=== PATIENT | female | born 1975 | race Caucasian/White ===

== ENCOUNTER 2022-12-21 09:59 | Emergency (ER) | payer OTHER ==
[~2022-12-21] VITALS: Ht 157.5 cm; Wt 58.4 kg
[2022-12-21 10:25] LABS: BASOPHILS % (AUTO) 0.6 % (0-1); EOSINOPHILS % (AUTO) 0.5 % (0-6); HEMATOCRIT 39.2 % (35.0-45.0); HEMOGLOBIN 13.2 g/dl (12.0-16.0); LYMPHOCYTES # (AUTO) 2.1 X10'3 (1.1-4.8); LYMPHOCYTES % (AUTO) 29.4 % (21-51); MEAN CORPUSCULAR HEMOGLOBIN 32.4 PG (27.0-31.0); MEAN CORPUSCULAR HGB CONC 33.6 g/dL (33.0-36.5); MEAN CORPUSCULAR VOLUME 96.4 FL (78-98); MEAN PLATELET VOLUME 7.2 FL (7.4-10.4); MONOCYTES # (AUTO) 0.5 X10'3 (0-0.9); MONOCYTES % (AUTO) 7.4 % (2-12); NEUTROPHILS # (AUTO) 4.4 X10'3 (1.8-7.7); NEUTROPHILS % (AUTO) 62.1 % (42-75); PLATELET COUNT 255 X10'3 (140-440); RED BLOOD COUNT 4.07 X10'6 (4.20-5.60); RED CELL DISTRIBUTION WIDTH 12.8 % (11.5-14.5); WHITE BLOOD COUNT 7.1 X10'3 (4.5-11.0)
[2022-12-21 10:58] LABS: ALANINE AMINOTRANSFERASE 19 U/L (12-78); ALBUMIN 3.9 G/DL (3.4-5.0); ALBUMIN/GLOBULIN RATIO 1.3 (1.1-1.5); ALKALINE PHOSPHATASE 39 IU/L (46-116); ANION GAP 9 (8-16); ASPARTATE AMINO TRANSFERASE 12 U/L (10-37); BILIRUBIN,TOTAL 0.3 MG/DL (0.1-1.0); BLOOD UREA NITROGEN 10 MG/DL (7-18); BUN/CREATININE RATIO 17.9 (10.0-20.0); CALCIUM 9.1 MG/DL (8.5-10.1); CHLORIDE 105 MMOL/L (99-107); CREATININE 0.56 MG/DL (0.40-0.90); GLUCOSE 112 MG/DL (70-104); LIPASE 135 U/L (73-393); POTASSIUM 3.9 MMOL/L (3.5-5.1); SODIUM 141 MMOL/L (135-145); TOTAL CARBON DIOXIDE 27.4 MMOL/L (24-32); TOTAL PROTEIN 6.9 G/DL (6.4-8.2); eCRCL 98 ML/MIN; eGFR > 90 ML/MIN
[2022-12-21] MEDS ORDERED: atropine 1 MG/1 ML vial IV STA (13:41)
[2022-12-21 13:54] VITALS: BP 127/75; PULSE 73; RESP 18; TEMP 98.7; O2SAT 100
[2022-12-21] MEDS ORDERED: LANS30CA37 PO (14:36)
[2022-12-21] MEDS ORDERED: HYDR-3965 PO (14:36)
== END 2022-12-21 14:50 | disposition home or self-care (01) ==
LOC: ER 09:59
DX: R10.33 Periumbilical pain (principal); Z88.2 Allergy status to sulfonamides
CPT/HCPCS: 36415; 74176; 80053; 83690; 85025; 99285

== ENCOUNTER 2023-04-01 08:37 | Day surgery (SDC) | payer OTHER ==
[2023-03-29 12:05] LABS: BASOPHILS % (AUTO) 0.6 % (0-1); EOSINOPHILS # (AUTO) 0.1 X10'3 (0-0.9); EOSINOPHILS % (AUTO) 1.4 % (0-6); LYMPHOCYTES % (AUTO) 24.8 % (21-51); MEAN CORPUSCULAR HEMOGLOBIN 33.1 PG (27.0-31.0); MEAN CORPUSCULAR HGB CONC 33.6 g/dL (33.0-36.5); MEAN CORPUSCULAR VOLUME 98.4 FL (78-98); MEAN PLATELET VOLUME 7.1 FL (7.4-10.4); MONOCYTES # (AUTO) 0.8 X10'3 (0-0.9); MONOCYTES % (AUTO) 9.4 % (2-12); NEUTROPHILS # (AUTO) 5.2 X10'3 (1.8-7.7); NEUTROPHILS % (AUTO) 63.8 % (42-75); PRE OP HEMATOCRIT 40.8 % (35.0-45.0); PRE OP HEMOGLOBIN 13.7 g/dL (12.0-16.0); PRE OP PLATELET COUNT 294 X10'3 (140-440); PRE OP WHITE BLOOD COUNT 8.1 10'3 (4.8-10.8); RED BLOOD COUNT 4.14 X10'6 (4.20-5.60); RED CELL DISTRIBUTION WIDTH 12.8 % (11.5-14.5)
[2023-03-29 12:20] LABS: ALBUMIN 4.1 G/DL (3.4-5.0); ALBUMIN/GLOBULIN RATIO 1.2 (1.1-1.5); ALKALINE PHOSPHATASE 45 IU/L (46-116); BLOOD UREA NITROGEN 20 MG/DL (7-18); BUN/CREATININE RATIO 35.1 (10.0-20.0); CALCIUM 9.4 MG/DL (8.5-10.1); CHLORIDE 101 MMOL/L (99-107); CREATININE 0.57 MG/DL (0.40-0.90); PRE OP ALT 20 U/L (30-65); PRE OP ANION GAP 8 (8-16); PRE OP AST 14 U/L (10-37); PRE OP BILIRUB, TOTAL 0.4 MG/DL (0.0-1.0); PRE OP GLUCOSE 106 MG/DL (70-104); PRE OP POTASSIUM 3.8 MMOL/L (3.4-5.1); PRE OP SODIUM 136 MMOL/L (135-145); TOTAL CARBON DIOXIDE 26.8 MMOL/L (24-32); TOTAL PROTEIN 7.5 G/DL (6.4-8.2); eGFR > 90 ML/MIN
[2023-03-29 12:26] LABS: HCG SERUM QL NEGATIVE
[2023-04-01] VITALS (10 sets, daily range): BP systolic 91–120; BP diastolic 38–66; PULSE 64–87; RESP 12–16; TEMP 98.6; O2SAT 95–100
[~2023-04-01] VITALS: Ht 154.9 cm; Wt 61.8 kg
[~2023-04-01 08:37] MED LIST: FLUT16SP2 BOTHNARES; MULT-1085 PO; cefazolin 2gm/D5W 100mL 100 ML IV ONE; famotidine 20mg tablet PO ONE; ringers solution, lacted 1,000 ML IV SCH
[2023-04-01] MEDS ORDERED: LIDOcaine 1% 30ml preserv. free vial ONE (09:53)
[2023-04-01] MEDS ORDERED: BUPIVAcaine/PF 2.5mg/ml (0.25%) 10ml vial ONE ×2 (09:53→10:02)
[2023-04-01] MEDS ORDERED: BUPIVACAINE liposomal/PF 13.3 MG/ML vial IM ONE (09:55)
[2023-04-01] MEDS ORDERED: sevoflurane 250ml liquid IH ONE (10:00)
[2023-04-01] MEDS ORDERED: midazolam 1 mg/ML 2ml injection ONE (10:07)
[2023-04-01] MEDS ORDERED: propofol inj 0 ML IV ONE (10:26)
[2023-04-01] MEDS ORDERED: propofol inj 20 ML IV ONE ×2 (10:26)
[2023-04-01] MEDS ORDERED: ondansetron/PF 4mg/2ml inj ONE (10:26)
[2023-04-01] MEDS ORDERED: dexamethasone sod phosphate 4mg/ml inj. ONE (10:26)
[2023-04-01] MEDS ORDERED: LIDOcaine 2% (20mg/ml) 5ml vial ONE ×2 (10:26→10:27)
[2023-04-01] MEDS ORDERED: fentaNYL /PF 50mcg/ml 5ml ampule ONE (10:26)
[2023-04-01] MEDS ORDERED: rocuronium 10mg/ml inj IV ONE (10:26)
[2023-04-01] MEDS ORDERED: neostigmine methylsulfate 1 MG/ML 10ml vial ONE (11:12)
[2023-04-01] MEDS ORDERED: glycopyrrolate 0.2mg/ml inj ONE (11:12)
[2023-04-01] MEDS ORDERED: morphine 4 MG/ML inj SYRINge IV ONE (11:19)
[2023-04-01] MEDS ORDERED: ringers solution, lacted 1,000 ML IV SCH (11:25)
[2023-04-01] MEDS ORDERED: ondansetron/PF 4mg/2ml inj IV PRN (11:25)
[2023-04-01] MEDS ORDERED: proCHLORperazine 10 MG/2 ml inj IV PRN (11:25)
[2023-04-01] MEDS ORDERED: hydrALAZINE 20mg/ml inj. IV PRN (11:25)
[2023-04-01] MEDS ORDERED: morphine 2 MG/ML inj. syringe IV PRN (11:25)
[2023-04-01] MEDS ORDERED: ketorolac trometh. 30mg/ml inj. IV ONE (11:25)
[2023-04-01] MEDS ORDERED: morphine 4 MG/ML inj SYRINge IV PRN (11:25)
[2023-04-01] MEDS ORDERED: acetaminophen 1,000mg/100ml IV 100 ML IV ONE (11:25)
[2023-04-01] MEDS ORDERED: labetalol 20mg/4ml (5mg/ml) syringe IV PRN (11:25)
[2023-04-01] MEDS ORDERED: meperidine/PF 25mg/ml syringe IV PRN ×2 (11:25)
[2023-04-01] MEDS ORDERED: oxyCODONE/APAP 5-325mg tablet PO PRN (11:40)
[2023-04-01] MEDS: meperidine/PF 25mg/ml syringe IV PRN ×2 (11:56→12:10)
== END 2023-04-01 12:48 | disposition home or self-care (01) ==
LOC: PRE-OP 08:37
PROVIDERS: ATTEND Surgery
DX: K43.6 Other and unspecified ventral hernia with obstruction, without gangrene (principal); K42.9 Umbilical hernia without obstruction or gangrene; Z87.891 Personal history of nicotine dependence; Z98.890 Other specified postprocedural states; Z79.899 Other long term (current) drug therapy; Z88.2 Allergy status to sulfonamides
CPT/HCPCS: 36415; 49592; 64488; 80053; 82948; 84703; 85025; C1781; C9290; J0131; J0690; J1100; J1885; J2175; J2250; J2270; J2405; J2704; J2710; J3010; J3490; J7030; J7120; Z7506; Z7508; Z7512; A4215; A4618